=== PATIENT | male | born 1980 | race Caucasian/White ===

== ENCOUNTER 2018-03-03 10:36 | Emergency (ER) | payer OTHER ==
[~2018-03-03] VITALS: Ht 177.8 cm; Wt 108.9 kg
--- NOTE | 2018-03-03 10:50 | NUR ---
Dr Osuna at the bedside for MSE.
[2018-03-03 11:13] VITALS: BP 153/70
--- NOTE | 2018-03-03 11:14 | NUR ---
Patient discharged to home in stable conditon. Written and verbal after care instructions given. Patient verbalizes understanding of instructions.
== END 2018-03-03 11:14 | disposition home or self-care (01) ==
LOC: ER 10:36
DX: K59.00 Constipation, unspecified (principal)
CPT/HCPCS: A4663